=== PATIENT | female | born 1960 | race Caucasian/White ===

== ENCOUNTER 2018-10-11 13:39 | Emergency (ER) | payer MEDICAID, OTHER ==
--- NOTE | 2018-10-11 15:02 | EDPHY ---
H & P Time Seen by Provider: 10/11/18 15:00 HPI/ROS: Chief complaint. Cough HPI. Patient is a 58-year-old female with cough for 1 week. She has been using Flovent as she has had exercise induced asthma. She had pulmonary embolus 1 year ago. She has also had a history of pneumothorax. She has factor 5 Leiden deficiency. She has had no fever. No chest pain or shortness of breath. Cough is nonproductive. Slight discomfort left medial thigh for a few days which is where her previous DVT had been. She has been compliant with Xarelto. No recent travel or known exposure to Infectious Disease ROS 10 systems were reviewed and negative with the exception of the elements mentioned in the history of present illness Past Medical/Surgical History: Factor 5 Leiden deficiency, DVT/PE, pneumothorax Social History: Single, nonsmoker, no alcohol Smoking Status: Never smoked Physical Exam: General Appearance: Alert pleasant well-developed female mild distress vital signs are stay Eyes: Pupils equal and round no pallor or injection. ENT, Mouth: Mucous membranes are moist. Tympanic membranes are normal. Pharynx without injection Respiratory: There are no retractions, lungs are clear to auscultation. Cardiovascular: Regular rate and rhythm. Gastrointestinal: Abdomen is soft and nontender, no masses, bowel sounds normal. Neurological: Awake and alert, sensory and motor exams grossly normal. Skin: Warm and dry, no rashes. Musculoskeletal: Neck is supple nontender. Extremities symmetrical, full range of motion. Psychiatric: Patient is oriented X 3, there is no agitation. Constitutional: Initial Vital Signs Temperature (C) 37.3 C 10/11/18 14:10 Heart Rate 66 10/11/18 14:10 Respiratory Rate 18 10/11/18 14:10 Blood Pressure 126/75 H 10/11/18 14:10 O2 Sat (%) 93 10/11/18 14:10 O2 Delivery Mode Room Air Allergies/Adverse Reactions: No Known Allergies Allergy (Unverified 10/11/18 14:09) Home Medications: Medication Instructions Recorded Ranitidine HCl 10/11/18 Xarelto 10/11/18 Medical Decision Making - Diagnostics Imaging Results: Imaging Impressions Chest X-Ray 10/11/18 15:14 Impression: Negative. No pneumonia or effusion. Chest x-ray interpreted by me consistent with bronchitis. No evidence for pneumonia or pneumothorax ED Course/Re-evaluation: D-dimer is 100 with upper limit of normal 400 Re-evaluation 4:00 p.m.. Patient and I discussed imaging and lab results. We discussed treatment plan including criteria for return and importance of follow- up and further evaluation. She expresses understanding and agreement Differential Diagnosis: I considered pneumonia, pulmonary embolus, pneumothorax. Pulmonary embolus is unlikely as the patient has been compliant on her Xarelto. - Data Points Point of Care Test Results: D-Dimer D-Dimer Collection Date 10/11/18 D-Dimer Collection Time 15:35 D-Dimer (ng/ml) 100 Departure - Departure Disposition: Home, Routine, Self-Care Clinical Impression: Acute bronchitis Condition: Good Instructions: Acute Bronchitis (ED) Additional Instructions: Continue regular medications and take Xarelto daily as prescribed Return for worsening breathing, cough, fever, chest discomfort Recheck in 2 days if not improved Referrals: [id number] [Other] - 2-3 days, if not improved
[2018-10-11 16:39] VITALS: BP 126/88
== END 2018-10-11 16:34 | disposition home or self-care (01) ==
LOC: CED 13:39
DX: J40 Bronchitis, not specified as acute or chronic (principal); J45.909 Unspecified asthma, uncomplicated; Z86.718 Personal history of other venous thrombosis and embolism; Z79.899 Other long term (current) drug therapy
CPT/HCPCS: 71046-PO; 85379-QW-ER; 99283-ER